=== PATIENT | female | born 1960 | race Caucasian/White ===

== ENCOUNTER 2019-01-30 05:47 | Inpatient (IN) | payer OTHER ==
[2019-01-29 12:58] VITALS: BMI 27.2
[2019-01-30] VITALS (31 sets, daily range): BP systolic 101–132; BP diastolic 51–66; PULSE 61–88; RESP 8–20; Ht 170.2 cm; Wt 81.9 kg
[~2019-01-30] VITALS: Ht 170.2 cm; Wt 81.9 kg
[~2019-01-30 05:47] MED LIST: ASPI-1044 PO; CIPR500T4 PO
--- NOTE | 2019-01-30 06:20 | HPN ---
Date/Time of Note Date/Time of Note DATE: 01/30/19 TIME: 06:20 Interval H&P Admission Note Pt. seen H&P reviewed: No system changes KELLEY PITTS MD Jan 30, 2019 06:20
[2019-01-30] MEDS ORDERED: POLYMYXIN B 500000 UNIT INJ ONE (06:58)
[2019-01-30] MEDS ORDERED: LACTATED RINGER'S 1,000 ML IV SCH (07:00)
[2019-01-30] MEDS ORDERED: CEFAZOLIN 1 GM/50 ML (PMX) 50 ML IVPB ONE (07:00)
[2019-01-30] MEDS ORDERED: [UNRECOGNIZED DRUG - OTHER] INJ SCH ×7 (07:00)
[2019-01-30] MEDS ORDERED: ACETAMINOPHEN 500 MG TAB PO ONE (07:00)
[2019-01-30] MEDS ORDERED: LANSOPRAZOLE 30 MG CAP PO ONE (07:00)
[2019-01-30] MEDS ORDERED: oxyCODONE (CR) 10 MG TAB [oxyCONTIN] PO ONE (07:00)
[2019-01-30] MEDS ORDERED: TRANEXAMIC ACID 1GM/100ML(PMX) 100 ML INTRA-OP X1 IVPB ONE (07:00)
[2019-01-30] MEDS ORDERED: DEXAMETHASONE 4 MG/ML 1 ML INJ IV ONE (07:00)
[2019-01-30] MEDS ORDERED: TRANEXAMIC ACID 1GM/100ML(PMX) 100 ML PRE-OP X1 IVPB ONE (07:00)
[2019-01-30] MEDS ORDERED: ONDANSETRON 4 MG INJ IV ONE (07:00)
--- NOTE | 2019-01-30 07:22 | PREAC ---
Date/Time of Note Date/Time of Note DATE: 01/30/19 TIME: 07:21 Anesthesia Eval and Record Evaluation Time Pre-Procedure Interview DATE: 01/30/19 TIME: 07:21 Age 58 Sex female NPO: 8 hrs Preoperative diagnosis left knee primary OA Planned procedure left knee total replace,ment Past Medical History Past Medical History: None Surgery & Anesthesia Issues Other issues, No known issue Meds Anticoagulation: No Beta Evaristo within 24 hr: No Reason Beta Evaristo not given: Pt. not on B-Evaristo Reported Medications Ciprofloxacin Hcl* (Ciprofloxacin Hcl*) 500 Mg Tablet, 500 MG PO BID, #14 TAB STARTED 01-23-19 FOR 10 DAYS 01/30/19 Current Medications Lactated Ringer's 1,000 ml @ 125 mls/hr Q8H IV Last administered on 01/30/19at 06:45; Admin Dose 125 MLS/HR; Start 01/30/19 at 07:00; Stop 01/30/19 at 14:59 Cefazolin Sodium 50 ml @ 100 mls/hr PRE-OP ONCE IVPB ; Start 01/30/19 at 07:00; Stop 01/30/19 at 07:29 Tranexamic Acid 100 ml @ 220 mls/hr PRE-OP ONCE IVPB ; Start 01/30/19 at 07:00; Stop 01/30/19 at 07:27 Tranexamic Acid 100 ml @ 200 mls/hr INTRA-OP ONCE IVPB ; Start 01/30/19 at 07:00; Stop 01/30/19 at 07:29 Ropivacaine/ Morphine Sulfate/ Clonidine HCl/ Epinephrine/ Ketorolac Tromethamine/ Vancomycin HCl/ Sodium Chloride INTRA-OP INJ ; Start 01/30/19 at 07:00 Meds reviewed: Yes Allergies Coded Allergies: No Known Drug Allergies (Verified Allergy, Unknown, 01/30/19) Allergies Reviewed: Yes Labs/Studies Labs Reviewed: Reviewed by anesthesiologist test: N/A Studies: ECG (sr), CXR (nl) Pre-procedure Exam Last vitals Vital Signs Date Temp Pulse Resp B/P (MAP) Pulse Ox O2 O2 Flow FiO2 Time Delivery Rate 01/30/19 97.2 61 18 114/54 97 Room Air 07:12 (74) Airway: Adequate mouth opening Mallampati: Mallampati I Teeth: Normal Lung: Normal Heart: Normal ASA Physical Status ASA physical status: 1 Emergency: None Planned Anesthetic General/MAC: LMA Neuraxial: Spinal Nerve block: Femoral (left) Planned Pain Management Single shot nerve block Pre-operative Attestations Prior to commencing anesthesia and surgery, the patient was re-evaluated, there was verification of: *The patient's identity *The results of appropriate recent lab work and preoperative vital signs *The above evaluation not changing prior to induction *Anesthetic plan, risk benefits, alternative and complications discussed with patient/family; questions answered; patient/family understands, accepts and wishes to proceed. THEODORA KELLEY MD Jan 30, 2019 07:22
[2019-01-30] MEDS ORDERED: PROPOFOL 20 ML ONE (07:26)
[2019-01-30] MEDS ORDERED: MIDAZOLAM 1 MG/ML 2 ML INJ ONE (07:27)
[2019-01-30] MEDS ORDERED: morphine SULFATE/PF (10 MG/10 ML) INJ ONE (07:30)
[2019-01-30] MEDS ORDERED: METOCLOPRAMIDE 10 MG INJ ONE (07:31)
[2019-01-30] MEDS ORDERED: CEFAZOLIN 1 GM INJ ONE (07:42)
[2019-01-30] MEDS ORDERED: TRANEXAMIC ACID 1GM/100ML(PMX) 200 ML ONE (07:42)
[2019-01-30] MEDS ORDERED: ROPIVACAINE 0.2% 20 ML VIAL ONE (07:42)
[2019-01-30] MEDS ORDERED: ONDANSETRON 4 MG INJ ONE (07:42)
[2019-01-30] MEDS ORDERED: EPHEDrine 25 MG/5 ML SYG ONE (07:47)
[2019-01-30] MEDS ORDERED: EPHEDrine 25 MG/5 ML SYG IV PRN (08:00)
[2019-01-30] MEDS ORDERED: HYDROmorphONE 1 MG/5 ML IV SYRINGE IV PRN ×3 (08:00)
[2019-01-30] MEDS ORDERED: DIPHENHYDRAMINE 50 MG INJ IV PRN (08:00)
[2019-01-30] MEDS ORDERED: ONDANSETRON 4 MG INJ IV PRN ×3 (08:00→18:30)
[2019-01-30] MEDS ORDERED: MEPERIDINE 25 MG INJ IV PRN (08:00)
[2019-01-30] MEDS ORDERED: FENTAnyl 50 MCG/ML VIAL IV PRN ×3 (08:00)
[2019-01-30] MEDS ORDERED: POLYMYXIN B 500000 UNIT INJ IRR ONE (08:20)
[2019-01-30] MEDS ORDERED: BACITRACIN 50000 UNITS INJ IRR ONE (08:20)
[2019-01-30] MEDS ORDERED: KETOROLAC 30 MG INJ ONE (09:05)
--- NOTE | 2019-01-30 10:06 | SIPON ---
Date/Time of Note Date/Time of Note DATE: 01/30/19 TIME: 10:05 Operative Report Preoperative Diagnosis Left Knee Osteoarthritis Postoperative Diagnosis Same Operation/Procedure Performed Left Total Knee Arthroplasty Surgeon Gayle Clayton MD showroom sales assistant NA Anesthesia: spinal Estimated blood loss: other Transfusion Required none Specimen bone Grafts/Implants none Complications none GAYLE CLAYTON MD Jan 30, 2019 10:06
--- NOTE | 2019-01-30 10:21 | OPR ---
Date/Time of Note Date/Time of Note DATE: 01/30/19 TIME: 10:13 Operative Report Free Text/Dictation DATE OF OPERATION: January 30, 2019 SURGEON: Gayle Clayton MD PREOPERATIVE DIAGNOSIS: Left knee osteoarthritis. POSTOPERATIVE DIAGNOSIS: Left knee osteoarthritis. PROCEDURES PERFORMED: Left total knee arthroplasty, CPT code 09503. ANESTHESIOLOGIST: Dr. Barrios ANESTHESIA: Spinal. ESTIMATED BLOOD LOSS: 150 mL. COMPLICATIONS: None. SPECIMENS: Resected bone. DISPOSITION: PACU in stable condition. TOURNIQUET TIME: 50 minutes at 250 mmHg. IMPLANT USED: [employer] Nephew size 3 Robyn tibial baseplate, size 4 standard posterior stabilized Oxinium femur, size 11 high flexion polyethylene, size 35 mm patella. INDICATION FOR PROCEDURE: This is an 58-year-old female with end-stage osteoarthritis of the left knee who had failed nonoperative management. Risks, benefits, alternatives of surgical intervention were discussed with the patient and informed consent was obtained. The risks of surgery include but are not limited to infection, deep venous thrombosis, pulmonary embolism, damage to nerves and blood vessels, numbness around incision site, stiffness of knee, need for total knee manipulation under anesthesia, need for blood transfuion, heart attack, stroke, risks associated with anesthesia, implant loosening, wear of prosthesis, need for revision surgery, and . DESCRIPTION OF PROCEDURE: The patient was met in the preoperative suite. The correct operative site was confirmed and marked. The patient was then brought into operating room. After induction of anesthesia, the patient was placed in the supine position on the operating room table. A tourniquet was applied to left upper thigh. The left lower extremity was prepped and draped in the usual sterile fashion. Before starting, a timeout was taken to identify the correct operative site and confirm preoperative antibiotics consisting of 1 g of IV Ancef, along with 1 g of tranexamic acid were administered. At this point, the left leg was elevated and exsanguinated with an Esmarch and tourniquet was then insufflated for the above noted time. A midline incision was made and median parapatellar arthrotomy was then completed. The lateral patellar retinacular ligaments were released. A sleeve of tissue was released from the medial proximal tibia. The cruciate ligaments and the menisci were then excised. At this point, the custom distal femur cutting block was then pinned and 9.5 mm was resected from the distal femur. The 4-in-1 cutting block, size 4 was then plac ed. An rosendo wing was used to confirm that notching of the anterior cortex of the femur would not occur. The anterior and posterior condylar cuts were completed followed by the anterior and posterior chamfer cuts. The osteophytes were then removed with a rongeur. At this point, the tibia was subluxed anteriorly. Appropriate retractors were placed. The custom tibial cutting block was then pinned. The drop was used to ensure the correct alignment. Approximately 11 mm was resected off the lateral tibial plateau and 6 mm off the medial tibial plateau. Osteophytes were then removed. At this point, the flexion extension gaps were checked with a 9 mm gap shellfish checker and noted to be loose in bothl. Next, trial 4 standard femur was then pinned and the box cut was then completed. The tibia was then subluxed anteriorly and measured to size 3. The tibial tray was then pinned and a keel was then punched. The trial components were placed with a 11 mm polyethylene and noted to have full extension and greater than 120 degrees of flexion. The patella was then subluxed laterally and sized to 20 mm. Approximately, 5 mm was resected. The patellar was sized to 35 mm. The button was placed and noted to have excellent patellar tracking. The trial components were removed. All bony surfaces were pulse lavaged and dried. The appropriate size components were then cemented and the knee was held in extension with a 11 mm trial polyethylene until the cement cured. Once the cement had cured, the trial polyethylene was removed and the appropriate size polyethylene was then placed. The tranexamic acid was redosed. The cocktail was then injected. The extensor mechanism was closed using #1 Stratafix and the subcutaneous tissue with 2-0 Vicryl and the skin with 4-0 Monocryl. Steri-Strips were applied along with a sterile dressing. There were no complications. The patient was transferred to PACU in stable condition. POSTOPERATIVE CARE: The patient will be weightbearing as tolerated. The patient will work with physical therapy, and will receive two additional doses of IV antibiotics along with aspirin 81 mg p.o. b.i.d. for 6 weeks. Upon discharge, patient will follow up in my office within 2 weeks postoperatively. GAYLE CLAYTON MD Jan 30, 2019 10:21
[2019-01-30] MEDS ORDERED: MAGNESIUM HYDROXIDE 30ML CUP PO PRN (11:00)
[2019-01-30] MEDS ORDERED: BISACODYL 10 MG SUPP PR PRN (11:00)
[2019-01-30] MEDS ORDERED: NALOXONE (0.4 MG/ML) INJ IV PRN (11:00)
[2019-01-30] MEDS ORDERED: DOCUSATE SODIUM 100 MG CAP PO ONE (11:00)
[2019-01-30] MEDS ORDERED: NA PHOSPHATE/BIPHOS 133 ML ENEMA PR PRN (11:00)
[2019-01-30] MEDS ORDERED: NACL 0.9% 3 ML SYG IV SCH (11:00)
[2019-01-30] MEDS ORDERED: SENNA/DOCUSATE NA (8.6MG/50MG) TAB PO PRN (11:00)
[2019-01-30] MEDS: CEFAZOLIN 2 GM/50 ML (PMX) 50 ML IVPB SCH ×2 (11:05→19:45)
[2019-01-30] MEDS: GABAPENTIN 100 MG CAP PO SCH ×2 (13:00→23:21)
--- NOTE | 2019-01-30 18:59 | CONS ---
Assessment/Plan Assessment/Plan Assessment/Plan (Daily) Assessment and plan: 58-year-old female past medical history of diabetes, arthritis, breast cancer with surgery, who comes in for elective total knee replacement. #Left knee pain: Again status post total left knee replacement which occurred earlier today -Continue care as ordered by primary orthopedic surgery team including pain control medications, therapy, fluids, labs #Breast cancer: No apparent present issues - monitor for now #Diabetes: Monitor sugars We will continue to follow with you. Consultation Date/Type/Reason Admit Date/Time Jan 30, 2019 at 05:47 Date/Time of Note DATE: 01/30/19 TIME: 18:57 Hx of Present Illness 58-year-old female past medical history of diabetes, arthritis, breast cancer with surgery, who comes in for elective total knee replacement. This occurred earlier today after patient had been experiencing pain prior to admission. Presently patient is out of recovery and on medical surgical unit, and denies any upper or lower GI bleeding, nausea vomiting, fever chills, diarrhea constipation, chest pain or shortness of breath. Past Medical History Home Meds Reported Medications Ciprofloxacin Hcl* (Ciprofloxacin Hcl*) 500 Mg Tablet, 500 MG PO BID, #14 TAB STARTED 01-23-19 FOR 10 DAYS 01/30/19 Medications Current Medications IV Flush (NS 3 ml) 3 ml PER PROTOCOL IV ; Start 01/30/19 at 11:00 Oxycodone HCl (Roxicodone) 5 mg Q4H PRN PO .PAIN; Start 01/30/19 at 11:00 Ketorolac Tromethamine (Toradol) 15 mg Q6H PRN IV .PAIN; Start 01/30/19 at 11:00 Cefazolin Sodium/ Dextrose 50 ml @ 100 mls/hr Q8H IVPB Last administered on 01/30/19at 11:05; Admin Dose 100 MLS/HR; Start 01/30/19 at 12:30; Stop 01/31/19 at 04:59 Celecoxib (Celebrex) 100 mg BID PO ; Start 01/31/19 at 09:00 Gabapentin (Neurontin) 100 mg TID PO ; Start 01/30/19 at 13:00 Pantoprazole (Protonix Tab) 40 mg DAILY@06 PO ; Start 02/01/19 at 06:00 Docusate Sodium (Colace) 200 mg BID PO ; Start 01/31/19 at 09:00; Stop 02/03/19 at 08:59 Simethicone (Mylicon) 80 mg TID PRN PO .GAS; Start 01/30/19 at 11:00 Senna/Docusate Sodium (Senokot-S) 2 tab BID PRN PO .CONSTIPATION; Start 01/30/19 at 11:00 Magnesium Hydroxide (Milk Of Mag) 30 ml HS PRN PO .CONSTIPATION; Start 01/30/19 at 11:00 Bisacodyl (Dulcolax Supp) 10 mg DAILY PRN CO .CONSTIPATION; Start 01/30/19 at 11:00 Sodium Biphosphate/ Sodium Phosphate (Fleet Enema) 133 ml DAILY PRN CO .CONSTIPATION; Start 01/30/19 at 11:00 Naloxone HCl (Narcan) 0.2 mg Q2M PRN IV .RESP RATE; Start 01/30/19 at 11:00 Aspirin (Halfprin) 81 mg BID PO ; Start 01/31/19 at 09:00 Ondansetron HCl (Zofran Inj) 4 mg Q6H PRN IV NAUSEA AND/OR VOMITING; Start 01/30/19 at 18:30 Allergies: Coded Allergies: No Known Drug Allergies (Verified Allergy, Unknown, 01/30/19) Past Surgical History Past Surgical Hx: other (Possible breast surgery, gallbladder, bladder surgery) Family History Significant Family History: no pertinent family hx Social History Smoking Status: Never smoker Drug Use: none Exam/Review of Systems Exam Vitals Vital Signs Date Temp Pulse Resp B/P (MAP) Pulse Ox O2 O2 Flow FiO2 Time Delivery Rate 01/30/19 12 117/57 95 15:41 (77) 01/30/19 82 15:13 01/30/19 Room Air 10:23 01/30/19 6.0 10:03 01/30/19 98.3 09:58 Exam 57-year-old male prior history of presumed arthritis and prior knee surgeries who was brought in for total knee replacement of the left knee. Results Results 24hrs Laboratory Tests Test 01/30/19 06:36 Bedside Glucose 142 Medications Medication Current Medications IV Flush (NS 3 ml) 3 ml PER PROTOCOL IV ; Start 01/30/19 at 11:00 Oxycodone HCl (Roxicodone) 5 mg Q4H PRN PO .PAIN; Start 01/30/19 at 11:00 Ketorolac Tromethamine (Toradol) 15 mg Q6H PRN IV .PAIN; Start 01/30/19 at 11:00 Cefazolin Sodium/ Dextrose 50 ml @ 100 mls/hr Q8H IVPB Last administered on 01/30/19at 11:05; Admin Dose 100 MLS/HR; Start 01/30/19 at 12:30; Stop 01/31/19 at 04:59 Celecoxib (Celebrex) 100 mg BID PO ; Start 01/31/19 at 09:00 Gabapentin (Neurontin) 100 mg TID PO ; Start 01/30/19 at 13:00 Pantoprazole (Protonix Tab) 40 mg DAILY@06 PO ; Start 02/01/19 at 06:00 Docusate Sodium (Colace) 200 mg BID PO ; Start 01/31/19 at 09:00; Stop 02/03/19 at 08:59 Simethicone (Mylicon) 80 mg TID PRN PO .GAS; Start 01/30/19 at 11:00 Senna/Docusate Sodium (Senokot-S) 2 tab BID PRN PO .CONSTIPATION; Start 01/30/19 at 11:00 Magnesium Hydroxide (Milk Of Mag) 30 ml HS PRN PO .CONSTIPATION; Start 01/30/19 at 11:00 Bisacodyl (Dulcolax Supp) 10 mg DAILY PRN CO .CONSTIPATION; Start 01/30/19 at 11:00 Sodium Biphosphate/ Sodium Phosphate (Fleet Enema) 133 ml DAILY PRN CO .CONSTIPATION; Start 01/30/19 at 11:00 Naloxone HCl (Narcan) 0.2 mg Q2M PRN IV .RESP RATE; Start 01/30/19 at 11:00 Aspirin (Halfprin) 81 mg BID PO ; Start 01/31/19 at 09:00 Ondansetron HCl (Zofran Inj) 4 mg Q6H PRN IV NAUSEA AND/OR VOMITING; Start 01/30/19 at 18:30 DANIA REYNOSO Jan 30, 2019 18:59
[2019-01-31 00:20] VITALS: BP 108/60; PULSE 72; RESP 17
[2019-01-31] MEDS: CEFAZOLIN 2 GM/50 ML (PMX) 50 ML IVPB SCH (03:35)
[2019-01-31 07:32] VITALS: BP 106/54; PULSE 68; RESP 19
[2019-01-31] MEDS ORDERED: ASPIRIN (EC) 81 MG TAB PO SCH (09:00)
[2019-01-31] MEDS ORDERED: DOCUSATE SODIUM 100 MG CAP PO SCH (09:00)
[2019-01-31] MEDS ORDERED: CELECOXIB 100 MG CAP PO SCH (09:00)
[2019-01-31] MEDS: oxyCODONE 5 MG TAB PO PRN ×2 (09:36→14:58)
[2019-01-31] MEDS: GABAPENTIN 100 MG CAP PO SCH ×2 (09:36→13:11)
--- NOTE | 2019-01-31 10:13 | PAC ---
Date/Time of Note Date/Time of Note DATE: 01/31/19 TIME: 10:13 Post-Anesthesia Notes Post-Anesthesia Note Last documented vital signs Vital Signs Date Temp Pulse Resp B/P (MAP) Pulse Ox O2 O2 Flow FiO2 Time Delivery Rate 01/31/19 97.9 68 19 106/54 97 Room Air 07:32 (71) 01/30/19 6.0 10:03 Activity: WNL Respiratory function: WNL Cardiovascular function: WNL Mental status: Baseline Pain reasonably controlled: Yes Hydration appropriate: Yes Nausea/Vomiting absent: No THEODORA KELLEY MD Jan 31, 2019 10:13
--- NOTE | 2019-01-31 10:15 | OPPN ---
Date/Time of Note Date/Time of Note DATE: 01/31/19 TIME: 10:14 Anesthesia Follow up Anesthesia Follow up Last documented vital signs Vital Signs Date Temp Pulse Resp B/P (MAP) Pulse Ox O2 O2 Flow FiO2 Time Delivery Rate 01/31/19 97.9 68 19 106/54 97 Room Air 07:32 (71) 01/30/19 6.0 10:03 Respiratory function: WNL Cardiovascular function: WNL Comments A 58 year female s/p knee replacement, under GA sponal duramorph form post op pain, POD #1 is douing fine, No pain,N/V, headache, neural deficit, SOB. THEODORA KELLEY MD Jan 31, 2019 10:15
[2019-01-31] MEDS: KETOROLAC 15 MG INJ IV PRN ×2 (13:14→19:09)
--- NOTE | 2019-01-31 14:11 | PN ---
Date/Time of Note Date/Time of Note DATE: 01/31/19 TIME: 14:06 Assessment/Plan VTE Prophylaxis Risk score (from Ns)>0 risk: 10 SCD applied (from Ns): No SCD contraindicated: other Pharmacological prophylaxis: other (per ortho recommendaitons. on ASA) Lines/Catheters IV [facility] Saline Lock Urinary Cath still in place: No Assessment/Plan Hospital Course Assessment and plan #Left knee osteoarthritis Patient status post left total knee arthroplasty. Continue with analgesics as needed Continue physical therapy #History of breast cancer No present issue Patient for outpatient follow-up #History of diabetes Monitor glucose trend start ISS Disposition and plan. Continue physical therapy and analgesics. Follow-up A1c. Discussed POC with Dr. Ruelas Result Diagram: 01/31/19 0509 01/31/19 0509 Results 24hrs Laboratory Tests Test 01/31/19 05:09 01/31/19 07:09 White Blood Count 12.6 H Red Blood Count 3.81 L Hemoglobin 10.8 L Hematocrit 34.2 L Mean Corpuscular Volume 89.8 Mean Corpuscular Hemoglobin 28.3 L Mean Corpuscular Hemoglobin Concent 31.6 L Red Cell Distribution Width 13.4 Platelet Count 185 Mean Platelet Volume 11.9 H Immature Granulocytes % 0.600 H Neutrophils % 84.6 H Lymphocytes % 6.8 L Monocytes % 7.9 Eosinophils % 0.0 Basophils % 0.1 Nucleated Red Blood Cells % 0.0 Immature Granulocytes # 0.070 H Neutrophils # 10.7 H Lymphocytes # 0.9 Monocytes # 1.0 H Eosinophils # 0.0 Basophils # 0.0 Nucleated Red Blood Cells # 0.0 Sodium Level 137 Potassium Level 4.3 Chloride Level 103 Carbon Dioxide Level 26 Anion Gap 8 Blood Urea Nitrogen 14 Creatinine 0.60 Est Glomerular Filtrat Rate mL/min > 60 Glucose Level 139 Calcium Level 8.6 Lab Scanned Report REFERENCE LAB Subjective 24 Hr Interval Summary Free Text/Dictation Seen walking with physical therapy during interview. No signs of distress. Comfortable present. Exam/Review of Systems Exam Vitals Vital Signs Date Temp Pulse Resp B/P (MAP) Pulse Ox O2 O2 Flow FiO2 Time Delivery Rate 01/31/19 97.9 68 19 106/54 97 Room Air 07:32 (71) 01/30/19 6.0 10:03 Intake and Output 01/30/19 01/30/19 01/31/19 1515:00 23:00 07:00 IntakeIntake Total 1500 ml 50 ml 50 ml OutputOutput Total 50 ml 800 ml BalanceBalance 1450 ml 50 ml -750 ml Constitutional: alert, oriented Psych: nl mood/affect Head: normocephalic Eyes: nl conjunctiva Respiratory: clear to auscultation, normal air movement Cardiovascular: regular rate and rhythm Gastrointestinal: soft, non-tender Musculoskeletal: other (dressing LLE ) Neurological: REGIONAL MAINTENANCE MANAGER II-XII intact, nl mental status, nl speech Results Results 24hrs Laboratory Tests Test 01/31/19 05:09 01/31/19 07:09 White Blood Count 12.6 H Red Blood Count 3.81 L Hemoglobin 10.8 L Hematocrit 34.2 L Mean Corpuscular Volume 89.8 Mean Corpuscular Hemoglobin 28.3 L Mean Corpuscular Hemoglobin Concent 31.6 L Red Cell Distribution Width 13.4 Platelet Count 185 Mean Platelet Volume 11.9 H Immature Granulocytes % 0.600 H Neutrophils % 84.6 H Lymphocytes % 6.8 L Monocytes % 7.9 Eosinophils % 0.0 Basophils % 0.1 Nucleated Red Blood Cells % 0.0 Immature Granulocytes # 0.070 H Neutrophils # 10.7 H Lymphocytes # 0.9 Monocytes # 1.0 H Eosinophils # 0.0 Basophils # 0.0 Nucleated Red Blood Cells # 0.0 Sodium Level 137 Potassium Level 4.3 Chloride Level 103 Carbon Dioxide Level 26 Anion Gap 8 Blood Urea Nitrogen 14 Creatinine 0.60 Est Glomerular Filtrat Rate mL/min > 60 Glucose Level 139 Calcium Level 8.6 Lab Scanned Report REFERENCE LAB Medications Medication Current Medications IV Flush (NS 3 ml) 3 ml PER PROTOCOL IV ; Start 01/30/19 at 11:00 Oxycodone HCl (Roxicodone) 5 mg Q4H PRN PO .PAIN Last administered on 01/31/19at 09:36; Admin Dose 5 MG; Start 01/30/19 at 11:00 Ketorolac Tromethamine (Toradol) 15 mg Q6H PRN IV .PAIN Last administered on 01/31/19at 13:14; Admin Dose 15 MG; Start 01/30/19 at 11:00 Celecoxib (Celebrex) 100 mg BID PO Last administered on 01/31/19at 09:36; Admin Dose 100 MG; Start 01/31/19 at 09:00 Gabapentin (Neurontin) 100 mg TID PO Last administered on 01/31/19at 13:11; Admin Dose 100 MG; Start 01/30/19 at 13:00 Pantoprazole (Protonix Tab) 40 mg DAILY@06 PO ; Start 02/01/19 at 06:00 Docusate Sodium (Colace) 200 mg BID PO Last administered on 01/31/19at 09:36; Admin Dose 200 MG; Start 01/31/19 at 09:00; Stop 02/03/19 at 08:59 Simethicone (Mylicon) 80 mg TID PRN PO .GAS; Start 01/30/19 at 11:00 Senna/Docusate Sodium (Senokot-S) 2 tab BID PRN PO .CONSTIPATION; Start 01/30 at 11:00 Magnesium Hydroxide (Milk Of Mag) 30 ml HS PRN PO .CONSTIPATION; Start 01/30/19 at 11:00 Bisacodyl (Dulcolax Supp) 10 mg DAILY PRN ME .CONSTIPATION; Start 01/30/19 at 11:00 Sodium Biphosphate/ Sodium Phosphate (Fleet Enema) 133 ml DAILY PRN ME .CONSTIPATION; Start 01/30/19 at 11:00 Naloxone HCl (Narcan) 0.2 mg Q2M PRN IV .RESP RATE; Start 01/30/19 at 11:00 Aspirin (Halfprin) 81 mg BID PO Last administered on 01/31/19at 09:36; Admin Dose 81 MG; Start 01/31/19 at 09:00 Ondansetron HCl (Zofran Inj) 4 mg Q6H PRN IV NAUSEA AND/OR VOMITING; Start 01/30/19 at 18:30 MICHAEL ALLRED NP Jan 31, 2019 14:10
[2019-01-31] MEDS ORDERED: DEXTROSE 50% 50 ML SYRINGE IV PRN ×2 (14:30)
[2019-01-31] MEDS ORDERED: GLUCAGON 1 MG INJ IM PRN (14:30)
[2019-01-31] MEDS ORDERED: GLUCOSE GEL 15 GRAM TUBE BUCCAL PRN (14:30)
[2019-01-31] MEDS ORDERED: GLUCOSE GEL 15 GRAM TUBE PO PRN ×2 (14:30)
[2019-01-31 14:35] VITALS: BP 113/53; PULSE 72
[2019-01-31] MEDS ORDERED: INSULIN ASPART [NOVOLOG] 3 ML PEN SC SCH (17:55)
[2019-02-01] MEDS ORDERED: ACCU-CHEK XX SCH (02:00)
[2019-02-01] MEDS ORDERED: PANTOPRAZOLE (EC) 40 MG TAB PO SCH (06:00)
== END 2019-01-31 19:50 | disposition home or self-care (01) | DRG 470 ==
LOC: REC 05:47 → MS1 16:15
PROVIDERS: ADMIT Orthopaedic Surgery Adult Reconstructive Orthopaedic Surgery; ATTEND Orthopaedic Surgery Adult Reconstructive Orthopaedic Surgery
PROC: 0SRD069 Replacement of Left Knee Joint with Oxidized Zirconium on Polyethylene Synthetic Substitute, Cemented, Open Approach (ICD-10-PCS; principal; 2019-01-30 07:30)
DX: M17.12 Unilateral primary osteoarthritis, left knee (principal); E11.9 Type 2 diabetes mellitus without complications; Z85.3 Personal history of malignant neoplasm of breast
CPT/HCPCS: 73560; 80048; 82962; 83036; 85025; 87081; 88304; 88311; 97116; 97162; 97530; C1713; J0171; J0690; J0735; J1100; J1815; J1885; J2250; J2274; J2405; J2765; J2795; J3370; J7120